=== PATIENT | female | born 1960 | race Caucasian/White ===

== ENCOUNTER 2020-10-19 11:57 | Day surgery (SDC) | payer MEDICARE, MEDICAID, SELFPAY ==
--- NOTE | 2020-08-09 12:01 | HO.ANESPROP2 ---
HPI - Anesthesia Eval Consult details Narrative: Needs cardiac clear for pending cardiac MRI 59yo F for Genicular Nerve Block Cooled RFA Right Morbid obesity. BMI=65 [facility] Past Medical History Medical History (Updated 08/09/20 @ 12:21 by Virginia Benton) Anxiety Arthritis Asthma CAD (coronary artery disease) Chronic back pain Class F diabetes mellitus during Depression Diabetes mellitus Diabetic neuropathy Elevated cholesterol Fatty liver GERD (gastroesophageal reflux disease) Hypertension Iron deficiency anemia Morbidly obese Needle phobia NSVT (nonsustained ventricular tachycardia) ROXANA on CPAP Palpitation Panic attacks Uses walker Surgical History Surgical History (Updated 08/06/20 @ 14:20 by Madison Clay) History of ankle surgery History of esophagogastroduodenoscopy (EGD) Hx of cholecystectomy Hx of colonoscopy Hx of tubal ligation Narrative Narrative: Pt seen by Dr Tyson for palps/NSVT/atypical CP - started on metoprolol and symptoms resolved per pt. Cath r/o'd any CAD. Noted multi origin PVC and NSVT. Has cardiac MRI pending. Meds Allergies Allergy/AdvReac Type Severity Reaction Status Date / Time No Known Allergies Allergy Unverified 08/06/20 14:21 [No Known Allergies*] Home Medications Medication Instructions Recorded Confirmed Type albuterol sulfate [ProAir HFA] 2 puff INHALATION Q4-6H PRN 08/06/20 08/06/20 History aripiprazole mg PO 08/06/20 History aripiprazole mg PO 08/06/20 History budesonide-formoterol [Symbicort] 2 puff INHALATION BID 08/06/20 08/06/20 History clonazepam 1 mg PO BEDTIME 08/06/20 08/06/20 History diltiazem HCl 360 mg PO DAILY 08/06/20 08/06/20 History ergocalciferol (vitamin D2) 50,000 unit PO Q7D 08/06/20 08/06/20 History eszopiclone mg PO 08/06/20 History ferrous sulfate 325 mg PO DAILY 08/06/20 08/06/20 History furosemide 20 mg PO DAILY 08/06/20 08/06/20 History gabapentin 800 mg PO TID 08/06/20 08/06/20 History glipizide 10 mg PO BID 08/06/20 08/06/20 History ibuprofen PO 08/06/20 History losartan 50 mg PO DAILY 08/06/20 08/06/20 History metformin 1,000 mg PO BID 08/06/20 08/06/20 History metoprolol tartrate 50 mg PO DAILY 08/06/20 08/06/20 History pantoprazole 40 mg PO DAILY 08/06/20 08/06/20 History pravastatin 40 mg PO DAILY 08/06/20 08/06/20 History ropinirole 0.25 mg PO BEDTIME 08/06/20 08/06/20 History sertraline mg PO 08/06/20 History thiamine HCl (vitamin B1) 100 mg PO DAILY 08/06/20 08/06/20 History vitamin A 10,000 unit PO DAILY 08/06/20 08/06/20 History zolpidem 12.5 mg PO BEDTIME 08/06/20 08/06/20 History Exam Exam Date and Time: August 09, 2020 8314
--- NOTE | 2020-10-15 13:30 | HO.ANESPROP2 ---
HPI - Anesthesia Eval Consult details Narrative: 59yo F for Genicular Nerve Block Cooled RFA Right Morbid obesity. BMI=65 Cardiac cleared [facility] Past Medical History Medical History (Updated 10/15/20 @ 13:34 by Virginia Benton) A-fib Anxiety Arthritis Asthma CAD (coronary artery disease) Chronic back pain Class F diabetes mellitus during Depression Diabetes mellitus Diabetic neuropathy Elevated cholesterol Fatty liver GERD (gastroesophageal reflux disease) Hypertension Iron deficiency anemia Morbidly obese Needle phobia NSVT (nonsustained ventricular tachycardia) ROXANA on CPAP Palpitation Panic attacks Uses walker Surgical History Surgical History (Updated 08/06/20 @ 14:20 by Madison Clay) History of ankle surgery History of esophagogastroduodenoscopy (EGD) Hx of cholecystectomy Hx of colonoscopy Hx of tubal ligation Meds Allergies Allergy/AdvReac Type Severity Reaction Status Date / Time No Known Allergies Allergy Unverified 08/06/20 14:21 [No Known Allergies*] Home Medications Medication Instructions Recorded Confirmed Type albuterol sulfate [ProAir HFA] 2 puff INHALATION Q4-6H PRN 08/06/20 08/06/20 History aripiprazole mg PO 08/06/20 History aripiprazole mg PO 08/06/20 History budesonide-formoterol [Symbicort] 2 puff INHALATION BID 08/06/20 08/06/20 History clonazepam 1 mg PO BEDTIME 08/06/20 08/06/20 History diltiazem HCl 360 mg PO DAILY 08/06/20 08/06/20 History ergocalciferol (vitamin D2) 50,000 unit PO Q7D 08/06/20 08/06/20 History eszopiclone mg PO 08/06/20 History ferrous sulfate 325 mg PO DAILY 08/06/20 08/06/20 History furosemide 20 mg PO DAILY 08/06/20 08/06/20 History gabapentin 800 mg PO TID 08/06/20 08/06/20 History glipizide 10 mg PO BID 08/06/20 08/06/20 History ibuprofen PO 08/06/20 History losartan 50 mg PO DAILY 08/06/20 08/06/20 History metformin 1,000 mg PO BID 08/06/20 08/06/20 History metoprolol tartrate 50 mg PO DAILY 08/06/20 08/06/20 History pantoprazole 40 mg PO DAILY 08/06/20 08/06/20 History pravastatin 40 mg PO DAILY 08/06/20 08/06/20 History ropinirole 0.25 mg PO BEDTIME 08/06/20 08/06/20 History sertraline mg PO 08/06/20 History thiamine HCl (vitamin B1) 100 mg PO DAILY 08/06/20 08/06/20 History vitamin A 10,000 unit PO DAILY 08/06/20 08/06/20 History zolpidem 12.5 mg PO BEDTIME 08/06/20 08/06/20 History Exam Exam Date and Time: October 15, 2020 1330 Pertinent Lab Results Pertinent Lab Results: Laboratory Tests 03/12/20 06/28/20 12:13 08:58 WBC 9.6 Hgb 10.2 L Hct 34.9 L Plt Count 290 Sodium 141 Potassium 3.9 Chloride 108 BUN 19 H Creatinine 0.69 Narrative Narrative: Per cardiac note : 2019 cardiac cath: no evidence of CAD 30day holter: NSVT and SVT, started on beta jaime EKG 09/17/2002: SR, vertical axis @ 88, no significant change compared to previous Assessment and Plan Assessment Anesthesia Assessment: Chart Reviewed
--- NOTE | 2020-10-18 14:46 | MHC.SHP ---
Pre-Procedural Eval Section A The patient is an INPATIENT: No Changes since office visit: Yes Patient answered all questions The History & Physical has been completed within 30 days and I have reviewed it.: No Section B Chief Complaint: RIGHT KNEE OSTEOARTHRITIS Details of Present Illness: As above Relevant Family History (Specify if Yes): No Relevant Social History: None Present Medications: see Short Stay Collaborative assessment Medical History: No relevant PMH History of Previous Operations: No relevant previous surgery Allergies: Allergies Allergy/AdvReac Type Severity Reaction Status Date / Time No Known Allergies Allergy Unverified 08/06/20 14:21 [No Known Allergies*] Review of Systems Sugical H&P ROS: Negative: Constitution, Cardiovascular, Respiratory, Neurological, Psychiatric, Hem-Onc, Allergic/Immunologic, Gastrointestinal, Genitourinary, Musculoskeletal, Integumentary, Endocrine and Eyes/Ears/Nose/Throat Exam Surgical H&P Exam: Normal: HEENT, Normal: Heart, Normal: Lungs, Normal: Extremities, Normal: Abdomen, Normal: Skin and Normal: Neurological Plan Diagnosis/Plan: Unchanged I have reviewed the history and physical and performed a pertinent physical examination on my patient. No changes have occurred unless specified.
--- NOTE | 2020-10-19 07:36 | FL_ITS ---
EXAMINATION: XR FLUOROSCOPY WITH IMAGES CLINICAL INFORMATION: Pain right knee. COMPARISON: Fluoroscopy with images 02/03/2020. TECHNIQUE: Fluoroscopy performed by Dr. Lonnie Love. Fluoroscopy time: 0.4 minutes DAP: 2.29 Gycm2 Images: 3 FINDINGS: There are 2 needles on either side of the distal right femur and one needle medial side mid aspect right proximal tibia. There are osteoarthritic changes medial knee joint compartment with joint narrowing and subchondral sclerosis and osteophytes. FL/FL guidance in OR IMPRESSION: Fluoroscopy for pain management procedure. Osteoarthritis.
[2020-10-19 12:23] LABS: Glucose, Whole Blood 130 mg/dL (60-115)
[2020-10-19 12:26] VITALS: BP 124/72; PULSE 90; RESP 18; TEMP 36.1; O2SAT 96; BMI 131.3
[2020-10-19] MEDS: Lactated Ringers 1,000 ML 100 ML IVCONT (13:03)
[2020-10-19 13:21] VITALS: BMI 59.5
--- NOTE | 2020-10-19 14:33 | PM.OP ---
Brief Operative Note Date of Service: 10/19/20 Pre-op diagnosis: Right knee osteoarthritis Post-op diagnosis: same Procedure: Cooled radiofrequency ablation of the left knee. Implants: None Surgeon: Lonnie Love MD Anesthesia: MAC Estimated blood loss (mL): 0 Pathology: none sent Condition: stable Disposition: PACU
[2020-10-19 14:34] VITALS: BP 106/64; PULSE 89; RESP 16; TEMP 36.2; O2SAT 97
--- NOTE | 2020-10-19 14:34 | P.OP_ITS ---
Operative Note Operative Note Date of Service: 10/19/20 Narrative: The informed consent was explained to the patient risks and benefits of the procedure were explained. They include bleeding infection as well as failure to relieve the pain. The patient was taken to the operating room and positioned supine on the operating table with support under her right lower extremity. [place] [employer] monitors were applied and patient was deeply sedated. Her right knee was prepped with ChloraPrep and draped with utility towels. C-arm was brought over the operating field and sq picture of the right knee was obtained on the screen. The points of interest were delineated for infrapatellar saphenous nerve connection of the medial margin of tibial diaphysis with tibial metaphysis, for suprapatellar saphenous nerve: Connection of the medial margin of femoral bone diaphysis with metaphysis, for lateral genicular nerve the point of interest was the connection of the lateral margin of femoral bone diaphysis with metaphysis. The projection of the points of interest to the skin was injected with small amount of lidocaine 2% and after that 3 radiofrequency cannulas 75 mm long which were inserted through the skin and advanced to the point in of interest under AP and lateral x-ray views. When cannulas reached the point of interests the stylets were removed and the the radiofrequency probes were inserted into each of the cannula. The connection was made with cooled radiofrequency machine a and position of the needles again verified on lateral view. After that small amount of bupivacaine 0.5% mixed one-to-one with lidocaine 2% with addition of minimal amount of steroids was injected into the side port of each cannula. 40 seconds was waited and after that energy of 65? centigrade was applied to each of the cannulas for 2-1/2 minutes. Upon completion of energy application cannulas were removed sterile Band-Aid was applied patient was awaken and taken outside of the operating room where she recovered uneventfully she went home without immediate complications.
[2020-10-19 14:49] VITALS: BP 134/72; PULSE 82; RESP 16; TEMP 36.2; O2SAT 95
[2020-10-19 15:05] VITALS: BP 140/72; PULSE 82; RESP 16; O2SAT 95
== END 2020-10-19 15:25 | disposition home or self-care (01) ==
PROVIDERS: PCP Internal Medicine; Visit Provider Anesthesiology
PROC: 3E0T3BZ Introduction of Anesthetic Agent into Peripheral Nerves and Plexi, Percutaneous Approach (ICD-10-PCS; CPT 64454; principal; 2020-10-19 13:40)
DX: M17.11 Unilateral primary osteoarthritis, right knee (principal); M54.9 Dorsalgia, unspecified; G89.4 Chronic pain syndrome; I48.91 Unspecified atrial fibrillation; E11.40 Type 2 diabetes mellitus with diabetic neuropathy, unspecified; J45.909 Unspecified asthma, uncomplicated; J44.9 Chronic obstructive pulmonary disease, unspecified; I10 Essential (primary) hypertension; D50.9 Iron deficiency anemia, unspecified; Z79.51 Long term (current) use of inhaled steroids; Z79.899 Other long term (current) drug therapy; Z79.84 Long term (current) use of oral hypoglycemic drugs
CPT/HCPCS: 64624; 82947; J2250; J3010; J3300; Q9967

== ENCOUNTER 2020-10-26 10:02 | Day surgery (SDC) | payer MEDICARE, MEDICAID, SELFPAY ==
--- NOTE | 2020-10-19 13:19 | HO.ANESPROP2 ---
FORM[facility]LY [facility] Past Medical History Medical History A-fib Anxiety Arthritis Asthma CAD (coronary artery disease) Chronic back pain Class F diabetes mellitus during Depression Diabetes mellitus Diabetic neuropathy Elevated cholesterol Fatty liver GERD (gastroesophageal reflux disease) Hypertension Iron deficiency anemia Morbidly obese Needle phobia NSVT (nonsustained ventricular tachycardia) ROXANA on CPAP Palpitation Panic attacks Uses walker Surgical History Surgical History History of ankle surgery History of esophagogastroduodenoscopy (EGD) Hx of cholecystectomy Hx of colonoscopy Hx of tubal ligation Social History Social History Smoking Status: Never smoker Advance Directives: No Advance Directives Information Provided: Yes Meds Allergies Allergy/AdvReac Type Severity Reaction Status Date / Time No Known Allergies Allergy Verified 10/19/20 12:23 [No Known Allergies*] Home Medications Medication Instructions Recorded Confirmed Type albuterol sulfate [ProAir HFA] 2 puff INHALATION Q4-6H PRN 08/06/20 08/06/20 History aripiprazole mg PO 08/06/20 History aripiprazole mg PO 08/06/20 History budesonide-formoterol [Symbicort] 2 puff INHALATION BID 08/06/20 08/06/20 History clonazepam 1 mg PO BEDTIME 08/06/20 08/06/20 History diltiazem HCl 360 mg PO DAILY 08/06/20 08/06/20 History ergocalciferol (vitamin D2) 50,000 unit PO Q7D 08/06/20 08/06/20 History eszopiclone mg PO 08/06/20 History ferrous sulfate 325 mg PO DAILY 08/06/20 08/06/20 History furosemide 20 mg PO DAILY 08/06/20 08/06/20 History gabapentin 800 mg PO TID 08/06/20 08/06/20 History glipizide 10 mg PO BID 08/06/20 08/06/20 History ibuprofen PO 08/06/20 History losartan 50 mg PO DAILY 08/06/20 08/06/20 History metformin 1,000 mg PO BID 08/06/20 08/06/20 History metoprolol tartrate 50 mg PO DAILY 08/06/20 08/06/20 History pantoprazole 40 mg PO DAILY 08/06/20 08/06/20 History pravastatin 40 mg PO DAILY 08/06/20 08/06/20 History ropinirole 0.25 mg PO BEDTIME 08/06/20 08/06/20 History sertraline mg PO 08/06/20 History thiamine HCl (vitamin B1) 100 mg PO DAILY 08/06/20 08/06/20 History vitamin A 10,000 unit PO DAILY 08/06/20 08/06/20 History zolpidem 12.5 mg PO BEDTIME 08/06/20 08/06/20 History Exam Exam Date and Time: October 19, 2020 1319 Airway Mallampati Class: III TM Dist: >3cm Neck ROM: Full
--- NOTE | 2020-10-19 14:48 | HO.POSTANES ---
Post Anesthesia Evaluation Post Anesthesia Evaluation Anesthesia: Monitored Mental Status: Awake Pain Control: Satisfactory Nausea/Vomiting: None Hydration: Adequate Anesthesia-Related Issues: No Anes. Related Issues
[2020-10-25 12:03] VITALS: BMI 59.5
--- NOTE | 2020-10-25 13:43 | HO.ANESPROP2 ---
Documented by User: Virginia Benton 10/25/20 13:45 HPI - Anesthesia Eval Consult details Narrative: 59yo F for Genicular Nerve Block Cooled RFA Left Morbid obesity. BMI=65 Cardiac cleared s/p right side with MAC on 10/19/20 [facility] Past Medical History Medical History A-fib Anxiety Arthritis Asthma CAD (coronary artery disease) Chronic back pain Class F diabetes mellitus during Depression Diabetes mellitus Diabetic neuropathy Elevated cholesterol Fatty liver GERD (gastroesophageal reflux disease) Hypertension Iron deficiency anemia Morbidly obese Needle phobia NSVT (nonsustained ventricular tachycardia) ROXANA on CPAP Palpitation Panic attacks Uses walker Surgical History Surgical History History of ankle surgery History of esophagogastroduodenoscopy (EGD) Hx of cholecystectomy Hx of colonoscopy Hx of tubal ligation Social History Social History Smoking Status: Never smoker Second Hand Smoke Exposure: No Use of substances other than those prescribed or required for medical reasons: No Advance Directives: No Advance Directives Information Provided: Yes Advance Directives on File: No Meds Allergies Allergy/AdvReac Type Severity Reaction Status Date / Time No Known Allergies Allergy Verified 10/22/20 12:17 [No Known Allergies*] Home Medications Medication Instructions Recorded Confirmed Type albuterol sulfate [ProAir HFA] 2 puff INHALATION Q4-6H PRN 08/06/20 10/26/20 History aripiprazole 5 mg PO 08/06/20 History aripiprazole 20 mg PO 08/06/20 History budesonide-formoterol [Symbicort] 2 puff INHALATION BID 08/06/20 10/22/20 History clonazepam 1 mg PO BEDTIME 08/06/20 10/22/20 History diltiazem HCl 360 mg PO DAILY 08/06/20 10/26/20 History ergocalciferol (vitamin D2) 50,000 unit PO Q7D 08/06/20 10/22/20 History eszopiclone 1 mg PO BEDTIME 08/06/20 10/22/20 History ferrous sulfate 325 mg PO DAILY 08/06/20 10/22/20 History furosemide 20 mg PO DAILY 08/06/20 10/22/20 History gabapentin 800 mg PO TID 08/06/20 10/26/20 History glipizide 10 mg PO BID 08/06/20 10/22/20 History ibuprofen PO 08/06/20 History losartan 50 mg PO DAILY 08/06/20 10/22/20 History metformin 1,000 mg PO BID 08/06/20 10/22/20 History metoprolol tartrate 50 mg PO DAILY 08/06/20 10/26/20 History pantoprazole 40 mg PO DAILY 08/06/20 10/26/20 History pravastatin 40 mg PO DAILY 08/06/20 10/22/20 History ropinirole 0.25 mg PO BEDTIME 08/06/20 10/22/20 History sertraline mg PO 08/06/20 History thiamine HCl (vitamin B1) 100 mg PO DAILY 08/06/20 10/22/20 History vitamin A 10,000 unit PO DAILY 08/06/20 10/22/20 History zolpidem 12.5 mg PO BEDTIME 08/06/20 10/22/20 History Exam Exam Date and Time: October 25, 2020 1343 Height,Weight and Vital Signs: Height 5 ft Weight 138.346 kg Pertinent Lab Results Pertinent Lab Results: Laboratory Tests 03/12/20 06/28/20 12:13 08:58 WBC 9.6 Hgb 10.2 L Hct 34.9 L Plt Count 290 Sodium 141 Potassium 3.9 Chloride 108 BUN 19 H Creatinine 0.69 Narrative Narrative: Per cardiac note : 2019 cardiac cath: no evidence of CAD 30day holter: NSVT and SVT, started on beta jaime EKG 09/17/2002: SR, vertical axis @ 88, no significant change compared to previous Assessment and Plan Assessment Anesthesia Assessment: Chart Reviewed Documented by User: Radha Munguia 10/26/20 12:20 [facility] Past Medical History Medical History A-fib Anxiety Arthritis Asthma CAD (coronary artery disease) Chronic back pain Class F diabetes mellitus during Depression Diabetes mellitus Diabetic neuropathy Elevated cholesterol Fatty liver GERD (gastroesophageal reflux disease) Hypertension Iron deficiency anemia Morbidly obese Needle phobia NSVT (nonsustained ventricular tachycardia) ROXANA on CPAP Palpitation Panic attacks Uses walker Surgical History Surgical History History of ankle surgery History of esophagogastroduodenoscopy (EGD) Hx of cholecystectomy Hx of colonoscopy Hx of tubal ligation Social History Social History Smoking Status: Never smoker Second Hand Smoke Exposure: No Use of substances other than those prescribed or required for medical reasons: No Advance Directives: No Advance Directives Information Provided: Yes Advance Directives on File: No Meds Allergies Allergy/AdvReac Type Severity Reaction Status Date / Time No Known Allergies Allergy Verified 10/22/20 12:17 [No Known Allergies*] Home Medications Medication Instructions Recorded Confirmed Type albuterol sulfate [ProAir HFA] 2 puff INHALATION Q4-6H PRN 08/06/20 10/26/20 History aripiprazole 5 mg PO 08/06/20 History aripiprazole 20 mg PO 08/06/20 History budesonide-formoterol [Symbicort] 2 puff INHALATION BID 08/06/20 10/22/20 History clonazepam 1 mg PO BEDTIME 08/06/20 10/22/20 History diltiazem HCl 360 mg PO DAILY 08/06/20 10/26/20 History ergocalciferol (vitamin D2) 50,000 unit PO Q7D 08/06/20 10/22/20 History eszopiclone 1 mg PO BEDTIME 08/06/20 10/22/20 History ferrous sulfate 325 mg PO DAILY 08/06/20 10/22/20 History furosemide 20 mg PO DAILY 08/06/20 10/22/20 History gabapentin 800 mg PO TID 08/06/20 10/26/20 History glipizide 10 mg PO BID 08/06/20 10/22/20 History ibuprofen PO 08/06/20 History losartan 50 mg PO DAILY 08/06/20 10/22/20 History metformin 1,000 mg PO BID 08/06/20 10/22/20 History metoprolol tartrate 50 mg PO DAILY 08/06/20 10/26/20 History pantoprazole 40 mg PO DAILY 08/06/20 10/26/20 History pravastatin 40 mg PO DAILY 08/06/20 10/22/20 History ropinirole 0.25 mg PO BEDTIME 08/06/20 10/22/20 History sertraline mg PO 08/06/20 History thiamine HCl (vitamin B1) 100 mg PO DAILY 08/06/20 10/22/20 History vitamin A 10,000 unit PO DAILY 08/06/20 10/22/20 History zolpidem 12.5 mg PO BEDTIME 08/06/20 10/22/20 History Exam Airway Mallampati Class: III TM Dist: >3cm Neck ROM: Limited Loose/Missing/Broken Teeth: No Heart: RRR Lungs: CTA Assessment and Plan Assessment Anesthesia Assessment: Anesthesia Plan Discussed and Chart Reviewed Final Anesthetic Review NPO: Yes ASA Class: III Final Preanesthetic Review: Meds/Allgs Chart Reviewed, Consent Obtained/Reviewed and Anes Risks/Benef Reviewed Patient Risk: Intermediate Procedure Risk: Low Anesthetic Plan Anesthetic Plan: MAC: Disposition: Standard PACU
--- NOTE | 2020-10-26 06:59 | MHC.SHP ---
Pre-Procedural Eval Section A The patient is an INPATIENT: No The History & Physical has been completed within 30 days and I have reviewed it.: No Section B Chief Complaint: Left Knee Osteoarthritis Details of Present Illness: As above Relevant Family History (Specify if Yes): No Relevant Social History: None Present Medications: see Short Stay Collaborative assessment Medical History: Significant History History of Previous Operations: Relevant previous surgery/procedure and date(s) Allergies: Allergies Allergy/AdvReac Type Severity Reaction Status Date / Time No Known Allergies Allergy Verified 10/22/20 12:17 [No Known Allergies*] Review of Systems Sugical H&P ROS: Negative: Constitution, Cardiovascular, Respiratory, Neurological, Psychiatric, Hem-Onc, Allergic/Immunologic, Gastrointestinal, Genitourinary, Integumentary, Endocrine and Eyes/Ears/Nose/Throat and Yes, Specify: Musculoskeletal (Osteoarthritis symptoms generalized) Exam Surgical H&P Exam: Normal: HEENT, Normal: Heart, Normal: Lungs, Normal: Extremities (As above), Normal: Abdomen, Normal: Skin and Normal: Neurological Plan Diagnosis/Plan: Unchanged I have reviewed the history and physical and performed a pertinent physical examination on my patient. No changes have occurred unless specified.
--- NOTE | 2020-10-26 09:16 | FL_ITS ---
EXAMINATION: XR FLUOROSCOPY WITH IMAGES CLINICAL INFORMATION: Pain left knee COMPARISON: None. TECHNIQUE: Fluoroscopy performed by Dr. Lonnie Love. Fluoroscopy time: 0.2 minutes DAP: 3.35 mGycm2 Images: 2 FINDINGS: There are solitary needles placed along the medial and lateral distal femoral cortex and medial tibial cortex for cooled radiofrequency ablation. There is significant loss of lateral compartment joint space with moderate periarticular spurring. FL/FL guidance in OR IMPRESSION: Fluoroscopy was provided by Dr. Lonnie Love for radiofrequency ablation.
[2020-10-26 10:30] LABS: Glucose, Whole Blood 106 mg/dL (60-115)
[2020-10-26 10:33] VITALS: BP 130/77; PULSE 79; RESP 18; TEMP 36.1; O2SAT 96
[2020-10-26 10:41] VITALS: BP 130/77; PULSE 79; RESP 18; TEMP 36.1; O2SAT 96
[2020-10-26] MEDS: Lactated Ringers 1,000 ML 50 ML IVCONT (11:04)
--- NOTE | 2020-10-26 12:13 | MHC.SHP ---
Pre-Procedural Eval Section B Chief Complaint: Left Knee Osteoarthritis Allergies: Allergies Allergy/AdvReac Type Severity Reaction Status Date / Time No Known Allergies Allergy Verified 10/22/20 12:17 [No Known Allergies*] Plan I have reviewed the history and physical and performed a pertinent physical examination on my patient. No changes have occurred unless specified.
--- NOTE | 2020-10-26 12:40 | P.HPSUR_ITS ---
Pre-Procedural Eval Section A The patient is an INPATIENT: No The History & Physical has been completed within 30 days and I have reviewed it.: No Section B Chief Complaint: Left Knee Osteoarthritis Details of Present Illness: Left knee osteoarthritis Relevant Family History (Specify if Yes): No Relevant Social History: None Present Medications: see Short Stay Collaborative assessment Medical History: Significant History History of Previous Operations: No relevant previous surgery Allergies: Allergies Allergy/AdvReac Type Severity Reaction Status Date / Time No Known Allergies Allergy Verified 10/22/20 12:17 [No Known Allergies*] Review of Systems Sugical H&P ROS: Negative: Cardiovascular, Respiratory, Neurological, Psychiatric, Hem-Onc, Allergic/Immunologic, Gastrointestinal, Genitourinary, Musculoskeletal, Integumentary, Endocrine and Eyes/Ears/Nose/Throat and Yes, Specify: Constitution (Severe morbid obesity) Exam Surgical H&P Exam: Normal: HEENT, Normal: Heart, Normal: Lungs, Normal: Extremit ies, Normal: Skin and Normal: Neurological and Significant Findings: Abdomen (Greatly enlarged secondary to subcutaneous an intra-abdominal fat) Plan Diagnosis/Plan: Unchanged I have reviewed the history and physical and performed a pertinent physical examination on my patient. No changes have occurred unless specified.
--- NOTE | 2020-10-26 13:18 | PM.OP ---
Brief Operative Note Date of Service: 10/26/20 Pre-op diagnosis: Left knee osteoarthritis Post-op diagnosis: same Procedure: Cooled RFA of genicular nerves of the left knee. Implants: None Surgeon: Lonnie Love MD Anesthesia: MAC Estimated blood loss (mL): 7 Pathology: none sent Condition: stable Disposition: PACU
[2020-10-26 13:19] VITALS: BP 125/80; PULSE 110; RESP 14; TEMP 36.6; O2SAT 94
--- NOTE | 2020-10-26 13:19 | P.OP_ITS ---
Operative Note Operative Note Date of Service: 10/26/20 Narrative: The patient came to the operating room after informed consent was explained to the patient for the procedure. The risks and benefits were explained the risks were including bleeding infection. She came to operating room she was positioned supine on the operating table. [place] monitors were applied and patient was deeply sedated. Her left anterior lateral and medial knee as well as thigh as well as upper sheen were prepped with ChloraPrep and draped with utility towels. Sterilely draped C-arm was brought over the operating field and sq picture of left knee joint was demonstrated on the screen. Severe narrowing of the medial compartment of the left knee was noted. Point of interest were delineated as transition point of the diaphysis to the metaphysis of the femur on the medial and lateral site as well as transition point of the diaphysis to the metaphysis on the medial surface of the tibia. The projection of the point of interest to the skin was injected with lidocaine 2%. After that radiofrequency cannulas 75 mm each were driven to were the point of interest under x-ray control. The position in mid shaft of the bone was verified for all 3 cannulas. After that the stylets were removed and radiofrequency probes were inserted into each of the sites cannula. The radiofrequency probes were connected with cooled radiofrequency machine, injection of these mixture of lidocaine 2% with bupivacaine 0.5% was injected into each side port of the needles. After that 2 minutes 45 seconds of energy 60 degree centigrade was applied to each of the cannula. Patient tolerated procedure well. The cannula was were removed sterile Band-Aids were applied and patient was taking outside of the operating room to recovery room where she recovered uneventfully
[2020-10-26] MEDS: Acetaminophen 325 MG TABLET 650 MG PO (13:22)
[2020-10-26 13:34] VITALS: BP 137/90; PULSE 83; RESP 17; TEMP 36.6; O2SAT 97
--- NOTE | 2020-10-26 14:03 | W.PM.OPN ---
Operative Note Operative Note Date of Service: 10/26/20 Narrative: The patient was explained risks and benefits of the medial branch block the consent for the procedure was obtained. After that the patient was taking outside of the operating room where she was positioned prone on operating table. [place] [employer] monitors were applied patient was deeply sedated. After that her lower back and upper buttocks were prepped with ChloraPrep and draped with utility towels. Sterilely draped C-arm was brought of the operating field and sq picture of L4 and L5 vertebra as well as sacral bone were demonstrated on the screen. The points of interest were delineated as bilateral connection of superior articular process of L4 with corresponding transverse processes, bilateral connection of superior articular process of L5 with corresponding transverse processes, as well as bilateral connection of the superior articular process of S1 with sacral alae. 22 gauge 5 inch needle was driven to were the point of interest sequentially in tunnel vision fashion. When needle gently contacted the bone small amount of the contrast was injected demonstrating no intravascular and no intrathecal uptake of the contrast. After that small amount of bupivacaine 0.5% 1-1.5 cc was injected into each site. Bupivacaine was mixed with Kenalog. Total dose of Kenalog was no more than 40 mg.
--- NOTE | 2020-10-26 15:05 | HO.POSTANES ---
Post Anesthesia Evaluation Post Anesthesia Evaluation Vital Signs: Vital Signs Temp Pulse Resp BP Pulse Ox 10/26/20 13:34 97.8 F 83 17 137/90 H 97 10/26/20 13:19 97.8 F 110 H 14 125/80 94 10/26/20 10:41 96.9 F 79 18 130/77 96 10/26/20 10:33 96.9 F 79 18 130/77 96 Anesthesia: Monitored Mental Status: Awake Nausea/Vomiting: None Hydration: Adequate Anesthesia-Related Issues: No Anes. Related Issues
== END 2020-10-26 14:09 | disposition home or self-care (01) ==
PROVIDERS: PCP Internal Medicine; Visit Provider Anesthesiology
PROC: 3E0T3BZ Introduction of Anesthetic Agent into Peripheral Nerves and Plexi, Percutaneous Approach (ICD-10-PCS; CPT 64454; principal; 2020-10-26 12:10)
DX: M17.12 Unilateral primary osteoarthritis, left knee (principal); E11.40 Type 2 diabetes mellitus with diabetic neuropathy, unspecified; I48.91 Unspecified atrial fibrillation; I10 Essential (primary) hypertension; D50.9 Iron deficiency anemia, unspecified; G47.33 Obstructive sleep apnea (adult) (pediatric); K76.0 Fatty (change of) liver, not elsewhere classified; J45.909 Unspecified asthma, uncomplicated; Z79.51 Long term (current) use of inhaled steroids; Z79.84 Long term (current) use of oral hypoglycemic drugs; E66.01 Morbid (severe) obesity due to excess calories; Z68.44 Body mass index [BMI] 60.0-69.9, adult; F40.8 Other phobic anxiety disorders; F41.0 Panic disorder [episodic paroxysmal anxiety]
CPT/HCPCS: 64624; 82947; J2250; J3010; J3300; Q9967

== ENCOUNTER → 2020-11-01 13:35 | Outpatient (BNVA) | payer MEDICARE, MEDICAID, SELFPAY | PROVIDERS: PCP Internal Medicine; Visit Provider Anesthesiology | DX: M47.27 Other spondylosis with radiculopathy, lumbosacral region (principal); M46.1 Sacroiliitis, not elsewhere classified; M47.819 Spondylosis without myelopathy or radiculopathy, site unspecified; E66.01 Morbid (severe) obesity due to excess calories | CPT/HCPCS: 99212 ==

== ENCOUNTER 2020-11-02 13:04 | Outpatient (REF) | payer MEDICARE, MEDICAID, SELFPAY ==
--- NOTE | 2020-11-02 | MR_ITS ---
EXAMINATION: MR LUMBAR SPINE WITHOUT CONTRAST CLINICAL INFORMATION: Left radiculopathy. The patient states right leg pain. COMPARISON: There are no prior studies available for comparison. TECHNIQUE: MRI of the lumbar spine was obtained using routine sequences without contrast. FINDINGS: VERTEBRAL BODIES AND PARASPINAL STRUCTURES: There is a mild levoscoliosis. There is a 4 mm grade 1 anterolisthesis of L4 on L5, and there is a 2 mm grade 1 anterolisthesis of L5 on S1. There is narrowing of intervertebral disc height at L5-S1 with degenerative endplate contour changes with Schmorl's nodes and predominantly endplate fatty signal. Intervertebral disc height is also narrowed at T11-T12. The vertebral bodies have normal height and contour and no fractures are demonstrated. There is a focus of increased T1 and T2 signal in the body of L1 consistent with a hemangioma. Overall, marrow signal is homogenous. There is a prominent right renal cyst. The uterus is mildly prominent and has areas of heterogenous signal. CONUS MEDULLARIS AND CAUDA EQUINA: Normal, terminating at the level of L1. The lower thoracic spinal cord appears normal. The cauda equina nerve roots and filum terminale appear normal. SPINAL LEVELS: T11-T12: There is mild bilateral facet arthropathy. There is a small posterior disc protrusion which distorts the ventral thecal sac and narrows the subarticular recesses. There is mild central stenosis. The neural foramina are patent bilaterally. T12-L1: There is mild bilateral facet arthropathy. Disc contour is normal. There is no central stenosis or foraminal narrowing. L1-L2: There is mild bilateral facet arthropathy. Disc contour is normal. There is no central stenosis or foraminal narrowing. L2-L3: There is mild bilateral facet arthropathy. There is a diffuse disc bulge with mild flattening of the ventral thecal sac. There is no central stenosis. There is mild narrowing of the subarticular recesses. L3-L4: There is moderate to severe bilateral facet arthropathy with ligamenta flava hypertrophy and facet joint effusions. There is a broad-based posterior disc protrusion extending into the neural foramina bilaterally, without definite exiting nerve root impingement. There is narrowing of the bilateral subarticular recesses. There is no central stenosis. L4-L5: There is severe bilateral facet arthropathy with ligamenta flava hypertrophy and facet joint effusions. There is unroofing of the disc as a result of the anterolisthesis, and there are small inferior foraminal disc protrusions, more prominent on the right but without definite exiting nerve root impingement. Facet osteophytes narrow the subarticular recesses bilaterally, more severely on the right and there is impingement on the traversing right L5 nerve root. There is no central stenosis. L5-S1: There is moderate bilateral facet arthropathy. There is mild unroofing of the disc as a result of anterolisthesis. There is a prominent right foraminal disc protrusion extending far laterally with compression of the exiting and extraforaminal segments of the right L5 nerve root, and there is also severe impingement on the exiting left L5 nerve root. There is no central stenosis. MR/MR lumbar spine wo con IMPRESSION: 1. At L5-S1 there is a grade 1 anterolisthesis. There is a prominent right foraminal disc protrusion extending far laterally with compression of the exiting and extraforaminal segments of the right L5 nerve root. Milder encroachment is seen on the exiting left L5 nerve root. There is no central stenosis. 2. There is a grade 1 anterolisthesis of L4 on L5 secondary to severe facet arthropathy. There is narrowing of the right greater than left subarticular recesses with impingement on the traversing right L5 nerve root. There is no central stenosis. 3. Milder spondylitic and facet arthropathic changes are demonstrated at multiple other levels as described above.
== END 2020-11-02 13:05 | disposition home or self-care (01) ==
LOC: HO.MRI 13:04
PROVIDERS: Visit Provider Internal Medicine
DX: M54.16 Radiculopathy, lumbar region (principal)
CPT/HCPCS: 72148

== ENCOUNTER → 2020-11-08 11:01 | Outpatient (BNVA) | payer MEDICARE, MEDICAID, SELFPAY | PROVIDERS: PCP Internal Medicine; Visit Provider Anesthesiology | DX: M47.27 Other spondylosis with radiculopathy, lumbosacral region (principal); M46.1 Sacroiliitis, not elsewhere classified; M47.819 Spondylosis without myelopathy or radiculopathy, site unspecified; M51.36 Other intervertebral disc degeneration, lumbar region; E66.01 Morbid (severe) obesity due to excess calories | CPT/HCPCS: 99212 ==

== ENCOUNTER → 2020-12-03 11:15 | Outpatient (BNVA) | payer MEDICARE, MEDICAID, SELFPAY | PROVIDERS: PCP Internal Medicine; Referring Provider Internal Medicine; Visit Provider Anesthesiology | DX: M47.27 Other spondylosis with radiculopathy, lumbosacral region (principal); M46.1 Sacroiliitis, not elsewhere classified; M47.819 Spondylosis without myelopathy or radiculopathy, site unspecified; M51.36 Other intervertebral disc degeneration, lumbar region; E66.01 Morbid (severe) obesity due to excess calories | CPT/HCPCS: Q3014 ==

== ENCOUNTER 2021-01-11 09:55 | Day surgery (SDC) | payer MEDICARE, MEDICAID, SELFPAY ==
--- NOTE | 2021-01-10 09:54 | HO.ANESPROP2 ---
Documented by User: Virginia Serenity 01/10/21 09:56 HPI - Anesthesia Eval Consult details Narrative: 60yo F for Transforaminal L4-L5 & L5-S1 Epidural Injection s/p Genicular Nerve Block with MAC 10/2020 Morbid obesity. BMI=65 Cardiac cleared for previous pain procedure PMFSH Active Problems Active Problems: All Active Problems (Updated 11/08/20 @ 12:18 by Lonnie Love MD) Disc degeneration, lumbar (Acute) Morbid (severe) obesity due to excess calories (Acute) Arthropathy of facet joint (Acute) Sacroiliitis (Acute) Spondylosis of lumbosacral spine with radiculopathy (Acute) Past Medical History Medical History A-fib Anxiety Arthritis Arthropathy of facet joint Asthma CAD (coronary artery disease) Chronic back pain Class F diabetes mellitus during Depression Diabetes mellitus Diabetic neuropathy Disc degeneration, lumbar Elevated cholesterol Fatty liver GERD (gastroesophageal reflux disease) Hypertension Iron deficiency anemia Morbid (severe) obesity due to excess calories Morbidly obese Needle phobia NSVT (nonsustained ventricular tachycardia) ROXANA on CPAP Palpitation Panic attacks Sacroiliitis Spondylosis of lumbosacral spine with radiculopathy Uses walker Surgical History Surgical History History of ankle surgery History of esophagogastroduodenoscopy (EGD) Hx of cholecystectomy Hx of colonoscopy Hx of tubal ligation Social History Social History Smoking Status: Never smoker Second Hand Smoke Exposure: No Use of substances other than those prescribed or required for medical reasons: No Advance Directives: No Advance Directives Information Provided: Yes Meds Allergies Allergy/AdvReac Type Severity Reaction Status Date / Time No Known Allergies Allergy Verified 01/11/21 11:16 [No Known Allergies*] Home Medications Medication Instructions Recorded Confirmed Last Taken Type albuterol sulfate [ProAir HFA] 2 puff INHALATION Q4-6H PRN 08/06/20 10/26/20 10/26/20 History aripiprazole 5 mg PO 08/06/20 Unknown History aripiprazole 20 mg PO 08/06/20 10/26/20 History budesonide-formoterol [Symbicort] 2 puff INHALATION BID 08/06/20 10/22/20 10/19/20 08:00 History clonazepam 1 mg PO BEDTIME 08/06/20 10/22/20 Unknown History diltiazem HCl 360 mg PO DAILY 08/06/20 10/26/20 01/11/21 08:00 History ergocalciferol (vitamin D2) 50,000 unit PO Q7D 08/06/20 10/22/20 Unknown History eszopiclone 1 mg PO BEDTIME 08/06/20 10/22/20 Unknown History ferrous sulfate 325 mg PO DAILY 08/06/20 10/22/20 Unknown History furosemide 20 mg PO DAILY 08/06/20 10/22/20 Unknown History gabapentin 800 mg PO TID 08/06/20 10/26/20 01/11/21 08:00 History glipizide 10 mg PO BID 08/06/20 10/22/20 Unknown History ibuprofen PO 08/06/20 Unknown History losartan 50 mg PO DAILY 08/06/20 10/22/20 01/11/21 08:00 History metformin 1,000 mg PO BID 08/06/20 10/22/20 Unknown History metoprolol tartrate 50 mg PO DAILY 08/06/20 10/26/20 01/11/21 08:00 History pantoprazole 40 mg PO DAILY 08/06/20 10/26/20 01/11/21 08:00 History pravastatin 40 mg PO DAILY 08/06/20 10/22/20 Unknown History ropinirole 0.25 mg PO BEDTIME 08/06/20 10/22/20 Unknown History sertraline mg PO 08/06/20 Unknown History thiamine HCl (vitamin B1) 100 mg PO DAILY 08/06/20 10/22/20 Unknown History vitamin A 10,000 unit PO DAILY 08/06/20 10/22/20 Unknown History zolpidem 12.5 mg PO BEDTIME 08/06/20 10/22/20 Unknown History Exam Exam Date and Time: January 10, 2021 0954 Narrative Narrative: Per cardiac note : 2019 cardiac cath: no evidence of CAD 30day holter: NSVT and SVT, started on beta jaime EKG 09/17/2020: SR, vertical axis @ 88, no significant change compared to previous Assessment and Plan Assessment Anesthesia Assessment: Chart Reviewed Documented by User: Piper Terry 01/11/21 14:34 PMFSH Past Medical History Medical History A-fib Anxiety Arthritis Arthropathy of facet joint Asthma CAD (coronary artery disease) Chronic back pain Class F diabetes mellitus during Depression Diabetes mellitus Diabetic neuropathy Disc degeneration, lumbar Elevated cholesterol Fatty liver GERD (gastroesophageal reflux disease) Hypertension Iron deficiency anemia Morbid (severe) obesity due to excess calories Morbidly obese Needle phobia NSVT (nonsustained ventricular tachycardia) ROXANA on CPAP Palpitation Panic attacks Sacroiliitis Spondylosis of lumbosacral spine with radiculopathy Uses walker Surgical History Surgical History History of ankle surgery History of esophagogastroduodenoscopy (EGD) Hx of cholecystectomy Hx of colonoscopy Hx of tubal ligation Social History Social History Smoking Status: Never smoker Second Hand Smoke Exposure: No Use of substances other than those prescribed or required for medical reasons: No Advance Directives: No Advance Directives Information Provided: Yes Meds Allergies Allergy/AdvReac Type Severity Reaction Status Date / Time No Known Allergies Allergy Verified 01/11/21 11:16 [No Known Allergies*] Home Medications Medication Instructions Recorded Confirmed Last Taken Type albuterol sulfate [ProAir HFA] 2 puff INHALATION Q4-6H PRN 08/06/20 10/26/20 10/26/20 History aripiprazole 5 mg PO 08/06/20 Unknown History aripiprazole 20 mg PO 08/06/20 10/26/20 History budesonide-formoterol [Symbicort] 2 puff INHALATION BID 08/06/20 10/22/20 10/19/20 08:00 History clonazepam 1 mg PO BEDTIME 08/06/20 10/22/20 Unknown History diltiazem HCl 360 mg PO DAILY 11/11/2410/26/20 01/11/21 08:00 History ergocalciferol (vitamin D2) 50,000 unit PO Q7D 08/06/20 10/22/20 Unknown History eszopiclone 1 mg PO BEDTIME 08/06/20 10/22/20 Unknown History ferrous sulfate 325 mg PO DAILY 08/06/20 10/22/20 Unknown History furosemide 20 mg PO DAILY 08/06/20 10/22/20 Unknown History gabapentin 800 mg PO TID 08/06/20 10/26/20 01/11/21 08:00 History glipizide 10 mg PO BID 08/06/20 10/22/20 Unknown History ibuprofen PO 08/06/20 Unknown History losartan 50 mg PO DAILY 08/06/20 10/22/20 01/11/21 08:00 History metformin 1,000 mg PO BID 08/06/20 10/22/20 Unknown History metoprolol tartrate 50 mg PO DAILY 08/06/20 10/26/20 01/11/21 08:00 History pantoprazole 40 mg PO DAILY 08/06/20 10/26/20 01/11/21 08:00 History pravastatin 40 mg PO DAILY 08/06/20 10/22/20 Unknown History ropinirole 0.25 mg PO BEDTIME 08/06/20 10/22/20 Unknown History sertraline mg PO 08/06/20 Unknown History thiamine HCl (vitamin B1) 100 mg PO DAILY 08/06/20 10/22/20 Unknown History vitamin A 10,000 unit PO DAILY 08/06/20 10/22/20 Unknown History zolpidem 12.5 mg PO BEDTIME 08/06/20 10/22/20 Unknown History Exam Airway Mallampati Class: II TM Dist: >3cm Neck ROM: Full Assessment and Plan Assessment Anesthesia Assessment: Anesthesia Plan Discussed and Chart Reviewed Final Anesthetic Review NPO: Yes ASA Class: III Final Preanesthetic Review: No Changes in Pt Med Stat, Meds/Allgs Chart Reviewed, Consent Obtained/Reviewed and Anes Risks/Benef Reviewed Patient Risk: Intermediate Procedure Risk: Low Assessment/Block/Sedation in SS: Assess/Block/Sedation-SS Anesthetic Plan Anesthetic Plan: MAC: Disposition: Standard PACU
--- NOTE | ~2021-01-11 | FL_ITS ---
EXAMINATION: XR FLUOROSCOPY WITH IMAGES CLINICAL INFORMATION: Transforaminal epidural COMPARISON: MR lumbar spine 04/02/2021 TECHNIQUE: Fluoroscopy performed by Dr. Lonnie Love. Fluoroscopy time: 1.2 minutes DAP: 25.6 Gycm2 Images: 2 FINDINGS: There are spinal needles overlying outer aspect right L4 and L5 neural foramen with contrast in the nerve sheaths. There is some transforaminal epidural extension. No visible vascular communication. Known chronic round and resolved spot artifact seen on image intensifier. FL/FL guidance in OR IMPRESSION: Fluoroscopy for pain management procedure.
[2021-01-11 11:37] VITALS: BP 149/71; PULSE 102; RESP 20; TEMP 36.7; O2SAT 95; BMI 58.6
[2021-01-11 11:37] LABS: Glucose, Whole Blood 92 mg/dL (60-115)
[2021-01-11] MEDS: Lactated Ringers 1,000 ML 50 ML IV (12:40)
--- NOTE | 2021-01-11 14:12 | MHC.SHP ---
Pre-Procedural Eval Section B Chief Complaint: Disc Degeneration, Lumbar Details of Present Illness: As above Relevant Family History (Specify if Yes): No Relevant Social History: None Present Medications: see Short Stay Collaborative assessment Medical History: Significant History History of Previous Operations: No relevant previous surgery Allergies: Allergies Allergy/AdvReac Type Severity Reaction Status Date / Time No Known Allergies Allergy Verified 01/11/21 11:16 [No Known Allergies*] Review of Systems Sugical H&P ROS: Negative: Cardiovascular, Respiratory, Neurological, Psychiatric, Hem-Onc, Allergic/Immunologic, Gastrointestinal, Genitourinary, Musculoskeletal, Integumentary, Endocrine and Eyes/Ears/Nose/Throat and Yes, Specify: Constitution (morbid obesity) Exam Surgical H&P Exam: Normal: Heart, Normal: Lungs, Normal: Extremities, Normal: Abdomen, Normal: Skin and Normal: Neurological and Significant Findings: HEENT (morbid obesity) Plan Diagnosis/Plan: Unchanged I have reviewed the history and physical and performed a pertinent physical examination on my patient. No changes have occurred unless specified.
--- NOTE | 2021-01-11 14:20 | P.OP_ITS ---
Operative Note Operative Note Date of Service: 01/11/21 Narrative: After obtaining informed consent and explaining to the patient risks, benefits and alternatives to treat her pain, the patient was brought up to the operating room where she was positioned prone on the operating table.. [place] [employer] monitors were applied and minimal sedation was provided. All pressure points protected. Time-out was performed delineating correct site and side of the procedure, name and date of of the patient, risk of fire, need for antibiotic prophylaxis risk of DVT and need for DVT prophylaxis. After that the patient entire back was prepped with chloroprep and draped with fool body drape including ioban film. Sterilely drape C-arm was brought over the OR field and square pictures of the L4 and L5 vertebrae were demonstrated on the screen. Attention was 1st concentrated on L4-5 interspace on the right. Sq picture of L4 vertebra was delineated on the screen 1st. Tilting machine ipsilateral to the right 20? I attempted to obtain oblique picture of of the L4 vertebra a and picture of the pedicle. Unfortunately it was impossible to be done due to size of the patient and limitations the patient weight imposed on us because the patient was positioned on the bariatric operating room table with extended metal hardware obstructing the view. The position of the machine was switched to lateral and picture of the foramina was demonstrated on the screen. 8 cm away from the midline the needle was inserted again slightly below the projection of the transverse process and was advanced to the foramina in oblique fashion on intermittent anterior posterior and lateral views. When on anterior posterior view the picture of the tip of the needle was demonstrated in the middle of the projection of the pedicle injection of the contrast was performed demonstrating epidural spread of the contrast. After that injection of the 3 cc of lidocaine 1% mixed with Kenalog 40 mg was performed into the needle. The needle was removed and attention was concentrated on L5 vertebra. The distortion of the silhouette of L5 vertebra was noted. The very narrow interval be between the L5 vertebra and S1 was noted as well. The target was chosen as the lateral surface of S1 superior articular process on the right. Another 22 gauge 7 in needle with slightly tip banded was advanced in tunnel vision fashion to were the lateral border of superior articular process. Needle was advanced on oblique view. When the needle gently contacted the bone the tip of the needle was turned away and deviated away from the superior articular process. When articular process was navigated around the tip of the needle was turned back to were the spine and started to advance to were the foramina on anterior posterior and lateral views. At this moment the patient started to feel paresthesia going down to the right lower extremity the needle was withdrawn and injection of the contrast was performed. The injection demonstrated the spread of the contrast in perineural and intraneural fashion. The needle was injected even more and injection of the contrast was performed again now the perineural contrast spread was demonstrated. After that 3 cc of mixture of lidocaine 1% with 40 mg of Kenalog was injected into the area. After that the needle was removed. Sterile dressings were applied. The patient tolerated procedure well. She was taking outside of the operating room to PACU where she recovered uneventfully.
--- NOTE | 2021-01-11 14:22 | PM.OP ---
Brief Operative Note Date of Service: 01/11/21 Pre-op diagnosis: Disc degeneration lumbar Post-op diagnosis: same Implants: None Surgeon: Lonnie Love MD Anesthesia: MAC Estimated blood loss (mL): 3 Condition: stable Disposition: PACU
[2021-01-11 15:38] VITALS: BP 172/77; PULSE 101; RESP 12; TEMP 36.2; O2SAT 95
[2021-01-11 15:53] VITALS: BP 170/80; PULSE 63; RESP 20; TEMP 36.5; O2SAT 96
== END 2021-01-11 16:50 ==
LOC: HO.SSS 09:55
PROVIDERS: PCP Internal Medicine; Visit Provider Anesthesiology
PROC: (CPT 64483; principal; 2021-01-11 12:20)
DX: M51.36 Other intervertebral disc degeneration, lumbar region (principal); E11.9 Type 2 diabetes mellitus without complications; I10 Essential (primary) hypertension; G47.33 Obstructive sleep apnea (adult) (pediatric); E66.01 Morbid (severe) obesity due to excess calories; Z68.44 Body mass index [BMI] 60.0-69.9, adult
CPT/HCPCS: 64483; 64484; 82947; J2250; J3010; J3300; Q9967